=== PATIENT | female | born 1970 | race American Indian/Alaskan Native ===

== ENCOUNTER 2017-07-01 09:59 | Day surgery (SDC) | payer MEDICAID ==
[2017-07-01] MEDS ORDERED: ceFAZolin 2 GM in NACL 0.9% 100 ML IV ONE (11:03)
--- NOTE | 2017-07-01 11:06 | Short Stay Summary ---
Short Stay Documentation Date of service: 07/01/17 - History H&P: obtained from office - Allergies and Medications Current Medications: Allergies No Known Allergies Allergy (Unverified 06/22/17 10:36) Home Medications Medication Instructions Recorded Confirmed Last Taken Type Amitriptyline [Elavil] 50 mg PO DAILY 06/22/17 06/22/17 Unknown History Lisinopril/Hydrochlorothiazide 10 - 12.5 mg PO DAILY 06/22/17 06/22/17 Unknown History [Zestoretic 20-12.5 mg] Active Medications Cefazolin Sodium 2 gm/ Sodium (Chloride) 100 mls @ 200 mls/hr IV ONCE ONE Stop: 07/01/17 11:32 - Brief post op/procedure progress note Date of procedure: 07/01/17 Pre-op diagnosis: right renal up lg stone Post-op diagnosis: same Procedure: cysto stent 626, right renal up eswl Anesthesia: GETA Findings: good vis, limited frag Surgeon: HOWIE JULIAN Estimated blood loss: minimal Pathology: none Condition: stable - Hospital course Hospital course: or pacu home - Disposition Condition at discharge: Good Disposition: DC-01 TO HOME OR SELFCARE Short Stay Discharge Plan Activity: advance as tolerated Diet: advance as tolerated Follow up with: HOWIE JULIAN MD [Staff Physician] - 7 Days Prescriptions: Cefuroxime Axetil [Ceftin] 250 mg PO Q12H #10 tablet HYDROcodone/APAP 10-325 [[place] 10-325 mg TAB] 0.5 - 1 each PO Q6HR PRN #30 tablet PRN Reason: Pain
[2017-07-01] MEDS ORDERED: ANCEF/STERILE WATER 2 GM/20 ML 2 GM/20 ML SYRINGE IV NR (11:20)
--- NOTE | 2017-07-01 12:05 | Anesthesia Consultation ---
Anesthesia Consult and Med Hx Date of service: 07/01/17 - Airway Anesthetic Teeth Evaluation: Good ROM Head & Neck: Adequate Mental/Hyoid Distance: Adequate Mallampati Class: Class II Intubation Access Assessment: Probably Good - Pulmonary Exam CTA: Yes - Cardiac Exam Cardiac Exam: RRR - Pre-Operative Health Status ASA Pre-Surgery Classification: ASA2 Proposed Anesthetic Plan: General - Pulmonary Hx Smoking: No Hx Sleep Apnea: No (TRINO PRE SCREEN LOW RISK) - Cardiovascular System Hx Hypertension: Yes - Other Systems Hx Alcohol Use: Yes (SOCIALLY) Hx Cancer: No
--- NOTE | 2017-07-01 12:05 | Anesthesia Day of Surgery ---
Anesthesia Day of Surgery - Day of Surgery Patient Examined: Yes Patient H&P Reviewed: Yes Patient is NPO: Yes
[2017-07-01] MEDS ORDERED: ZOFRAN ONE (12:16)
[2017-07-01] MEDS ORDERED: DECADRON ONE (12:16)
[2017-07-01] MEDS ORDERED: DIPRIVAN 10 MG/ML IV ONE (12:16)
[2017-07-01] MEDS ORDERED: XYLOCAINE MPF 2% ONE (12:16)
[2017-07-01] MEDS ORDERED: PEPCID PO NR (12:30)
[2017-07-01] MEDS ORDERED: VERSED IV NR (13:00)
[2017-07-01] MEDS ORDERED: LACTATED RINGERS 1,000 ML IV SCH (13:00)
[2017-07-01] MEDS ORDERED: DILAUDID ONE ×2 (13:26→14:47)
[2017-07-01] MEDS ORDERED: WATER FOR IRRIG STERILE IR ONE (13:39)
[2017-07-01] MEDS: DILAUDID IV PRN ×2 (14:44→14:54)
--- NOTE | 2017-07-01 15:36 | Post Anesthesia Evaluation ---
- Post Anesthesia Evaluation Patient Participated: Yes Airway Patent: Yes Stable Respiratory Function: Yes Nausea/Vomiting: No Temp > 96.8F: Yes Pain Manageable: Yes Adequeate Hydration: Yes Anesthesia Complications: No Block Receding Appropriately: Not Applicable Patient on Ventilator: No
[2017-07-01 19:12] VITALS: BP 114/77
--- NOTE | 2017-07-07 08:26 | Operative Report ---
PREOPERATIVE DIAGNOSIS: Right renal upper pole large stone. POSTOPERATIVE DIAGNOSIS: Right renal upper pole large stone. PROCEDURE: Right renal upper pole ESWL, cystoscopy with right 6 x 26 double-J stent placement. FINDINGS: Good visualization mild fragmentation. SURGEON: Og Escobar MD ESTIMATED BLOOD LOSS: Minimal. PATHOLOGY: None. CONDITION: Stable. CLINICAL INDICATIONS: Counseled on RCBA, antibiotics, SCDs, and questions answered. DESCRIPTION OF PROCEDURE: Transferred to OR suite in supine position, anesthesia, dorsal lithotomy, prepped and draped in standard fashion. A 22-Welsh scope passed, contrast injected demonstrating stone. Glidewire passed. A 6 x 26 double-J stent passed over the wire under direct and fluoroscopic visualization. When string wire removed, nice proximal and distal J. Scope removed. The patient was placed in supine position. Biplanar fluoroscopy was used to target the stone with an F2. There was good visualization of the stone. A total of 2500 shocks were delivered with a maximum of 5.0 kilovolts. Intermittent repositioning done as necessary. At the end of the procedure, there was very mild decreased density. The patient awakened and transferred to PACU in good and stable condition. PLAN: This was staged for future additional treatments to decide size and location of the stone and was expected likely staged procedure, additionally stage for future stent removal. JOB# [id number] ATS/NTS
== END 2017-07-01 16:55 | disposition home or self-care (01) ==
LOC: OR 09:59
PROVIDERS: ATTEND Urology
DX: N20.0 Calculus of kidney (principal); F41.9 Anxiety disorder, unspecified; I10 Essential (primary) hypertension; Z79.899 Other long term (current) drug therapy; Z87.440 Personal history of urinary (tract) infections; Z72.89 Other problems related to lifestyle
CPT/HCPCS: 36415; 50590; 52332; 81025; 84132; A4217; C1758; C1769; C2617; J0690; J1100; J1170; J2250; J2405; J2704; J7120; Q9967

== ENCOUNTER 2019-05-25 10:50 | Emergency (ER) | payer MEDICAID ==
[2019-05-25] MEDS ORDERED: PEPCID IV ONE (11:08)
[2019-05-25] MEDS ORDERED: BENADRYL IV ONE (11:08)
[2019-05-25] MEDS ORDERED: DECADRON IV ONE (11:08)
--- NOTE | 2019-05-25 13:40 | Emergency Department Report ---
ED General Adult HPI - General Chief complaint: Allergic Reaction Stated complaint: ALLERGIC REACTION Time Seen by Provider: 05/25/19 11:07 Source: patient Mode of arrival: Ambulatory Limitations: No Limitations - History of Present Illness Initial comments: 48-year-old female currently on an KIM inhibitor. This is her second episode of lip swelling. The first was a few weeks ago and improved after Benadryl. Patient stated that she did not go to the doctor because of this improvement. It recurred again this morning and was worse. Patient has been on lisinopril for some time. She does not report any difficulty in breathing. Does not report any itching or hives. -: Gradual, days(s) Location: mouth Consistency: constant Improves with: none Worsens with: none Associated Symptoms: denies other symptoms - Related Data Home Medications Medication Instructions Recorded Confirmed Last Taken Lisinopril [Zestril] 20 mg PO QDAY 05/25/19 05/25/19 05/24/19 Sertraline [Zoloft] 50 mg PO QDAY 05/25/19 05/25/19 05/24/19 Previous Rx's Medication Instructions Recorded Last Taken Type amLODIPine [Norvasc] 5 mg PO DAILY #30 tab 05/25/19 Unknown Rx Allergies Allergy/AdvReac Type Severity Reaction Status Date / Time lisinopril Allergy Angioedema Verified 05/25/19 10:55 ED Review of Systems ROS: Stated complaint: ALLERGIC REACTION Other details as noted in HPI Constitutional: denies: chills, fever Eyes: denies: eye pain, eye discharge, vision change ENT: as per HPI. denies: ear pain, throat pain Respiratory: denies: cough, shortness of breath, wheezing Cardiovascular: denies: chest pain, palpitations Endocrine: no symptoms reported Gastrointestinal: denies: abdominal pain, nausea, diarrhea Genitourinary: denies: urgency, dysuria, discharge Musculoskeletal: denies: back pain, joint swelling, arthralgia Skin: denies: rash, lesions Neurological: denies: headache, weakness, paresthesias Psychiatric: denies: anxiety, depression Hematological/Lymphatic: denies: easy bleeding, easy bruising ED Past Medical Hx - Past Medical History Previous Medical History?: Yes Hx Hypertension: Yes Hx Kidney Stones: Yes - Surgical History Additional Surgical History: c section X 3 - Social History Smoking Status: Never Smoker - Medications Home Medications: Home Medications Medication Instructions Recorded Confirmed Last Taken Type Lisinopril [Zestril] 20 mg PO QDAY 05/25/19 05/25/19 05/24/19 History Sertraline [Zoloft] 50 mg PO QDAY 05/25/19 05/25/19 05/24/19 History amLODIPine [Norvasc] 5 mg PO DAILY #30 tab 05/25/19 Unknown Rx ED Physical Exam - General Limitations: No Limitations General appearance: alert, in no apparent distress - Head Head exam: Present: atraumatic, normocephalic - Eye Eye exam: Present: normal appearance - ENT ENT exam: Present: mucous membranes moist, other (1-2+ lymphedema. Normal oropharynx.) - Neck Neck exam: Present: normal inspection, other (no stridor no swelling). Absent: tenderness, meningismus - Respiratory Respiratory exam: Present: normal lung sounds bilaterally. Absent: respiratory distress - Cardiovascular Cardiovascular Exam: Present: regular rate, normal rhythm. Absent: systolic murmur, diastolic murmur, rubs, gallop - GI/Abdominal GI/Abdominal exam: Present: soft, normal bowel sounds. Absent: distended, tenderness - Extremities Exam Extremities exam: Present: normal inspection - Back Exam Back exam: Present: normal inspection - Neurological Exam Neurological exam: Present: alert, oriented X3, CN II-XII intact. Absent: motor sensory deficit - Psychiatric Psychiatric exam: Present: normal affect, normal mood - Skin Skin exam: Present: warm, dry, intact, normal color. Absent: rash ED Course Vital Signs 05/25/19 10:57 Temperature 98.3 F Pulse Rate 95 H Respiratory 16 Rate Blood Pressure 121/84 [Right] O2 Sat by Pulse 100 Oximetry - Reevaluation(s) Reevaluation #1: Patient was given Decadron, Benadryl and Pepcid. Her lymphedema improved. She had no signs of airway edema. She was counseled against further KIM inhibitor use. 05/25/19 13:39 Critical care attestation.: If time is entered above; I have spent that time in minutes in the direct care of this critically ill patient, excluding procedure time. 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 Do not take related medicines. Rx amlodipine. Follow your blood pressure. Follow-up with your primary care provider. He may continue the Benadryl today 25 mg every 6 hours as well as Pepcid 20 mg twice a day for a few days. These are [id number]-[id number]-[id number] medicines. Return to the emergency department any recurrent swelling. Prescriptions: amLODIPine [Norvasc] 5 mg PO DAILY #30 tab Referrals: PRIMARY CARE, [Primary Care Provider] - 2-3 Days Time of Disposition: 13:41
[2019-05-25 14:14] VITALS: BP 135/88
== END 2019-05-25 14:00 | disposition home or self-care (01) ==
LOC: ED 10:50
DX: T78.3XXA Angioneurotic edema, initial encounter (principal); I10 Essential (primary) hypertension; Y92.89 Other specified places as the place of occurrence of the external cause
CPT/HCPCS: 96374; 96375; 99283; J1100; J1200